=== PATIENT | male | born 1990 | race African-American/Black ===

== ENCOUNTER 2019-08-24 23:28 | Emergency (ER) | payer SELFPAY ==
[~2019-08-24] VITALS: Ht 182.9 cm; Wt 72.6 kg
[2019-08-24 23:44] VITALS: BP 127/75
--- NOTE | 2019-08-25 00:21 | NUR ---
28 Y/O MALE JOYCE, PRESENTS TO ED WITH ETOH INTOXICATION. EMS ARRIVED ON SCENE WITH PT OUTSIDE OF STORE. PER EMS, PT WAS UNABLE TO PROVIDE ANY VIABLE INFORMATION ABOUT WELL BEING. NO TRAUMA NOTED. AT ED, PT IS ALERT TO NAME ONLY. STATES USING METH PRIOR COMING TO ED. PT VSS. ERMD AWARE. WILL CONTINUE TO MONITOR.
--- NOTE | 2019-08-25 00:32 | NUR ---
Dr. Ayala examining patient.
[2019-08-25] MEDS ORDERED: NACL 0.9% 2,000 ML IV ONE (00:35)
[2019-08-25 00:52] LABS: BASOPHILS # (AUTO) 0.1 K/uL (0.00-0.22); BASOPHILS % (AUTO) 1.4 % (0.0-2.0); EOSINOPHILS # (AUTO) 0.1 K/uL (0-0.4); HEMATOCRIT 42.8 % (36-52); HEMOGLOBIN 14.5 g/dL (12.0-18.0); LYMPHOCYTES # (AUTO) 1.9 K/uL (2.0-11.5); LYMPHOCYTES % (AUTO) 50.8 % (20.5-51.1); MEAN CORPUSCULAR HEMOGLOBIN 30 pg (27-31); MEAN CORPUSCULAR HGB CONC 34 g/dL (33-37); MEAN CORPUSCULAR VOLUME 89.8 fL (80-94); MONOCYTES # (AUTO) 0.3 K/uL (0.8-1.0); MONOCYTES % (AUTO) 7.1 % (1.7-9.3); NEUTROPHILS # (AUTO) 1.4 K/uL (1.8-7.7); NEUTROPHILS % (AUTO) 37.7 % (42.2-75.2); PLATELET COUNT (AUTO) 308 K/uL (140-450); RED BLOOD CELL COUNT(AUTO) 4.76 MIL/uL (4.20-6.10); RED CELL DISTRIBUTION WIDTH 14.1 % (11.6-13.7); WHITE BLOOD COUNT (AUTO) 3.8 K/uL (4.8-10.8)
--- NOTE | 2019-08-25 00:53 | NUR ---
BLOOD DRAWN AND SENT TO LAB
[2019-08-25 01:12] LABS: ALBUMIN 3.8 g/dL (3.4-5.0); ANION GAP 16.7 (8-16); CREATININE 0.8 mg/dL (0.7-1.3); POTASSIUM 3.7 mmol/L (3.5-5.1); TOTAL BILIRUBIN 0.3 mg/dL (0.0-1.0)
[2019-08-25 02:01] LABS: APPEARANCE,URINE CLEAR (CLEAR); BILIRUBIN,URINE NEGATIVE (NEGATIVE); COLOR,URINE YELLOW (YELLOW); LEUKOCYTE ESTERASE ,URINE NEGATIVE (NEGATIVE); NITRITE, URINE NEGATIVE (NEGATIVE); PH,URINE 5.5 (5.0-9.0); UGLUCOSE NEGATIVE (NEGATIVE)
[2019-08-25 02:02] LABS: BLOOD, URINE TRACE (NEGATIVE)
[2019-08-25 02:04] LABS: RBC,URINE 0-5 /HPF (0-5); WBC,URINE 0-5 /HPF (0-5)
[2019-08-25 02:07] LABS: BARBITURATE, URINE NEG. ng/ml (NEG <=200); BENZODIAZEPINE, URINE NEG. ng/mL (NEG <=200); CANNABINOID, URINE POS. ng/mL (NEG <=50); COCAINE, URINE NEG. ng/mL (NEG <=300); OPIATE, URINE NEG. ng/mL (NEG <=2000); PHENCYCLIDINE SCREEN,URINE NEG. ng/mL (NEG <=25)
[2019-08-25] MEDS ORDERED: NACL 0.9% 1,000 ML IV ONE (02:20)
[2019-08-25 05:13] VITALS: BP 111/58
--- NOTE | 2019-08-25 05:13 | NUR ---
PT DISCHARGED WITH PAPERWORK. EDUCATED PT REGARDING D/C INSTRUCTIONS AND DIAGNOSIS. PT VERBALIZED UNDERSTANDING OF TEACHING. TOLD PT TO FOLLOW UP WITH PCP AND WHEN TO RETURN TO ED. PT AT STABLE CONDITION. ABLE TO AMBULATE WITH STEADY GAIT. ALL QUESTIONS ANSWERED.
== END 2019-08-25 05:13 | disposition home or self-care (01) ==
LOC: MED 23:28
DX: F10.129 Alcohol abuse with intoxication, unspecified (principal); F15.10 Other stimulant abuse, uncomplicated; F12.10 Cannabis abuse, uncomplicated
CPT/HCPCS: 36415; 80053; 80305; 81001; 85025; 99283; G0482